=== PATIENT | male | born 1955 | race African-American/Black ===

== ENCOUNTER 2020-02-13 14:05 | Inpatient (IN) | payer OTHER ==
--- NOTE | 2020-02-13 14:22 | BHS.RME ---
Substance Use & Tx History - Substance Use History Alcohol Substance amount: 3- magalis drinks Frequency of use: Daily Substance route: Oral Date of Last Use: 02/12/20 Heroin Substance amount: 2-3 bags Frequency of use: Daily Substance route: Inhalation (ex: sniffing or snorting) Date of Last Use: 02/12/20 Cocaine-Crack Substance amount: $300-400 Frequency of use: Daily Substance route: Smoking Date of Last Use: 02/12/20 Nicotine Substance amount: 3-4 ciggs Frequency of use: Daily Substance route: Smoking Date of Last Use: 02/12/20 Physical/Psych/Mental Status - Behavior General Behavior: Increased activity (restlessness, agitation) Eye Contact: Normal - Cooperativeness Cooperativeness: Cooperative - Thinking Thought Processes: Tight, Logical, Goal Directed - Physical Health Problems Is patient presently having any pain?: No Does patient presently have any injuries (include location): No Does patient currently have a fever: No Is patient : No COWS - Scale Resting Pulse: 1= [place] 81-100 Sweatin= Chills/Flushing Restless Observation: 1= Difficult to Sit Still Pupil Size: 1= Pupils >than Normal Bone or Joint Aches: 1= Mild Discomfort Runny Nose/ Eye Tearin= Runny Nose/Eyes GI Upset > 30mins: 1= Stomach Cramp Tremor Observation: 1= Tremor [place], Not Seen Yawning Observation: 1= 1-2x During Session Anxiety or Irritability: 1=Feels Anxious/Irritable Goose Flesh Skin: 3=Piloerection COWS Score: 14
--- NOTE | 2020-02-13 15:01 | HP ---
COWS - Scale Resting Pulse: 1= [place] 81-100 Sweatin= Chills/Flushing Restless Observation: 1= Difficult to Sit Still Pupil Size: 1= Pupils >than Normal Bone or Joint Aches: 1= Mild Discomfort Runny Nose/ Eye Tearin= Runny Nose/Eyes GI Upset > 30mins: 1= Stomach Cramp Tremor Observation: 1= Tremor [place], Not Seen Yawning Observation: 1= 1-2x During Session Anxiety or Irritability: 1=Feels Anxious/Irritable Goose Flesh Skin: 3=Piloerection COWS Score: 14 CIWA Score - Admission Criteria OASAS Guidelines: Admission for Medically Managed Detox: Requires at least one of the followin. CIWA greater than 12 2. Seizures within the past 24 hours 3. Delirium tremens within the past 24 hours 4. Hallucinations within the past 24 hours 5. Acute intervention needed for co occurring medical disorder 6. Acute intervention needed for co occurring psychiatric disorder 7. Severe withdrawal that cannot be handled at a lower level of care (continued vomiting, continued diarrhea, abnormal vital signs) requiring intravenous medication and/or fluids 8. Admitting History and Physical - Admission Chief Complaint: ellie Borrero is a 64yo male presents to [facility] requesting for detox from alcohol and opiates. History of Present Illness: Mr. Joseph Borrero is a 64yo male presents to [facility] requesting for detox from alcohol and opiates. 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 Substance amount: 2-3 bags Frequency of use: Daily Substance route: Inhalation (ex: sniffing or snorting) Date of Last Use: 02/12/20 First dose:23yo oVERDOSED 15 TIMES, LAST OD WAS 2 DAYS AGO, NO NARCAN AT HOME Cocaine-Crack Substance amount: $300-400 Frequency of use: Daily Substance route: Smoking Date of Last Use: 02/12/20 First dose: 34yo Nicotine Substance amount: 3-4 ciggs Frequency of use: Daily Substance route: Smoking Date of Last Use: 02/12/20 First dose: 15yo He is not currently in a methadone or suboxone program History Source: Patient Limitations to Obtaining History: No Limitations - Past Medical History Psych: Yes: Anxiety, Depression Musculoskeletal: Yes: Chronic low back pain (Was given pain meds and asked to return for follow up but he never went for follow up) Additional Past Medical History: Hyperlipidemia - Past Surgical History Past Surgical History: Yes: None - Smoking History Smoking history: Current every day smoker Have you smoked in the past 12 months: Yes Aproximately how many cigarettes per day: 19 - Alcohol/Substance Use Hx Alcohol Use: Yes Number of Drinks Daily: 3 (takes magalis) History of Substance Use: reports: Cocaine, Heroin (Takes 2-3 bags of heroin daily) Date of Last Use: 02/12/20 (crack) Admission [facility] Exam Limitations: No Limitations - Ebola screening Have you traveled outside of the country in the last 21 days: No Have you been sick,other than usual withdrawal symptoms: No Do you have a fever: No - Review of Systems Constitutional: No Symptoms Reported, Unexplained wgt Loss (have lost 60 pounds over a year) EENT: reports: Blurred Vision Respiratory: reports: No Symptoms reported Cardiac: reports: No Symptoms Reported Musculoskeletal: reports: Back Pain (mild back pain, did not follow up as requested after taking pain meds) Integumentary: reports: No Symptoms Reported Endocrine: reports: Unexplained Weight Loss (60 punds over past year) Psychiatric: reports: Agitated, Anxious, Depressed Patient History - Smoking Cessation Smoking history: Current every day smoker Have you smoked in the past 12 months: Yes Aproximately how many cigarettes per day: 19 Hx Chewing Tobacco Use: No Initiated information on smoking cessation: Yes 'Breaking Loose' booklet given: 02/13/20 - Substances abused Alcohol Substance route: Oral Frequency: Daily Amount used: 3 Age of first use: 18 Date of last use: 02/12/20 (drinks magalis) Heroin Substance route: Smoking Frequency: Daily Amount used: 2-3 bags Age of first use: 22 Date of last use: 02/12/20 Crack Substance route: Smoking Frequency: Daily Amount used: $300-400 Age of first use: 34 Date of last use: 02/12/20 Admission Physical Exam [facility] - Physical General Appearance: Yes: Within Normal Limits, No Apparent Distress, Intoxicated, Cachetic, Thin HEENTM: Yes: Within Normal Limits, EOMI, Hearing grossly Normal, Normocephalic, Normal Voice, VINNIE (Pupil mildly constricted) Respiratory: Yes: Within Normal Limits, Chest Non-Tender, Lungs Clear, Normal Breath Sounds, No Respiratory Distress, No Accessory Muscle Use Neck: Yes: Within Normal Limits, No masses,lesions,Nodules, Trachea in good position Cardiology: Yes: Within Normal Limits, Regular Rhythm, Regular Rate, S1, S2 Abdominal: Yes: Within Normal Limits, Normal Bowel Sounds, Non Tender, Flat, Soft Genitourinary: Yes: Within Normal Limits Back: Yes: Within Normal Limits Musculoskeletal: Yes: Within Normal Limits Extremities: Yes: Within Normal Limits Neurological: Yes: Within Normal Limits, Alert (alert but mildly intoxicated) Integumentary: Yes: Within Normal Limits, Normal Color - Diagnostic (1) Alcohol dependence Current Visit: Yes Status: Chronic Qualifiers: Substance use status: uncomplicated Qualified Code(s): F10.20 - Alcohol dependence, uncomplicated (2) Heroin dependence Current Visit: Yes Status: Chronic (3) Nicotine dependence Current Visit: Yes Status: Chronic Qualifiers: Nicotine product type: cigarettes Substance use status: uncomplicated Qualified Code(s): F17.210 - Nicotine dependence, cigarettes, uncomplicated (4) Crack cocaine use Current Visit: Yes Status: Chronic Cleared for Admission [facility] - Detox or Rehab Detox Regimen/Protocol: Librium, Methadone Screened but not Admitted - Documentation of Visit Screened but not Admitted: No Urine Drug Screen - Results Urine drug screen results: RIK-Cocaine, FEN-Fentanyl, MOP-Opiates Inpatient Rehab Admission - Rehab Decision to Admit Inpatient rehab admission?: No
[2020-02-13] MEDS ORDERED: cloNIDine HCL 0.1 MG TABLET PO PRN (15:52)
[2020-02-13] MEDS ORDERED: ACETAMINOPHEN 325 MG TABLET (FP) PO PRN ×2 (15:52)
[2020-02-13] MEDS ORDERED: METHOCARBAMOL 500 MG TABLET PO PRN (15:52)
[2020-02-13] MEDS ORDERED: MAGNESIUM CITRATE 300 ML BOTTLE PO PRN (15:52)
[2020-02-13] MEDS ORDERED: BISMUTH SUBSALICYLATE 524 MG/30 ML UD PO PRN (15:52)
[2020-02-13] MEDS ORDERED: MAGNESIUM HYDROX 2400MG/30ML ORAL SUSPENSION 30 ML CUP PO PRN (15:52)
[2020-02-13] MEDS ORDERED: MAG HYDROX/AL HYDROX/SIMETH 30 ML UNIT-DOSE CUP PO PRN (15:52)
[2020-02-13] MEDS ORDERED: METHADONE HCL 10 MG TABLET (FOR DETOX USE ONLY) PO ONE (15:52)
[2020-02-13] MEDS ORDERED: IBUPROFEN 400 MG TABLET (FP) PO PRN (15:52)
[2020-02-13] MEDS ORDERED: chlordiazePOXIDE HCL 25 MG CAPSULE PO PRN (15:52)
[2020-02-13] MEDS ORDERED: NICOTINE POLACRILEX 2 MG GUM BUC PRN (15:52)
[2020-02-13] MEDS ORDERED: MENTHOL/PHENOL 1 EACH UD MM PRN (15:52)
[2020-02-13] MEDS ORDERED: ONDANSETRON *ODT* 4 MG TABLET SL PRN (15:52)
[2020-02-13] MEDS ORDERED: NICOTINE 21 MG/24 HOURS TOPICAL PATCH TD SCH (16:00)
[2020-02-13] MEDS ORDERED: hydrOXYzine PAMOATE 25 MG CAPSULE (FP) PO PRN (16:21)
[2020-02-13] MEDS ORDERED: diazePAM 5 MG TABLET PO PRN (16:22)
--- NOTE | 2020-02-13 16:25 | PN ---
Teaching Attending Note Name of Resident: Anselmo Gentile ATTENDING PHYSICIAN STATEMENT I saw and evaluated the patient. I reviewed the resident's note and discussed the case with the resident. I agree with the resident's findings and plan as documented. SUBJECTIVE: pt here requesting detox from heroin use , reports 2 - max 3 bags ./ day via inhalation , denies IV use . ETOH 2-3 drinks/ day , denies blackouts/ tremors or seizures . Cocaine - daily nicotine daily denies meds Others' Prescriptions Patient Name: Joseph Borrero Date: 1955 Address: [address] [place] [address] Sex: Male Rx Written Rx Dispensed Drug Quantity Days Supply Prescriber Name Payment Method Dispenser 09/25/2019 09/25/2019 buprenorphine-naloxone 8-2 mg sl film 6 2 Laks, Chip [employer] [place] [employer] [place] 09/19/2019 09/19/2019 buprenorphine-naloxone 4-1 mg sl film 6 2 Laks, [employer] 09/16/2019 09/16/2019 buprenorphine-naloxone 8-2 mg sl film 9 3 Laks, [employer] OBJECTIVE: drowsy , awakened by verbal stimuli . COWS = 2 ( anxiety and irritability ) denies other symptoms . BP 123/68 P 51 T 97.5 utox + martir , + MOP, + FEN trace pedal edema cachectic ASSESSMENT AND PLAN: OUD - currently drowsy, intoxicated , not in withdrawal , will admit for pt safety . Monitor VS and COWS score to start Methadone taper . AUD - valium detox Nicotine dependence - nrt w/ gum Cocaine use disorder- counseling
[2020-02-13 16:49] VITALS: BMI 19.0
[2020-02-13] MEDS ORDERED: chlordiazePOXIDE HCL 25 MG CAPSULE PO SCH (17:00)
[2020-02-13] MEDS ORDERED: hydrOXYzine PAMOATE 25 MG CAPSULE (FP) PO SCH (18:00)
[2020-02-13] MEDS: PRENATAL VITAMINS W/ FOLIC ACID TABLET (FP) PO SCH (18:40)
[2020-02-13] MEDS: MELATONIN 5 MG TABLETS PO SCH (23:07)
[2020-02-13] MEDS: THIAMINE HCL 100 MG TABLET (FP) PO SCH (23:07)
[2020-02-13] MEDS: diazePAM 5 MG TABLET PO SCH (23:07)
[2020-02-14] MEDS: diazePAM 5 MG TABLET PO SCH ×3 (08:01→23:05)
--- NOTE | 2020-02-14 09:38 | CONSULT ---
[facility] Psychiatric Consult - Data Date of interview: 02/14/20 Admission source: [facility] Identifying data: Mr Borrero is a 64 years old single Black male, father of 2 children, unemployed receiving SSI, domiciled in supportive living in an apartment in the [place] seeking detox treatment for alcohol, opioid and cocaine Substance Abuse History: Reports history of alcohol, heroin and cocaine. Refer to addiction counselor's summary for further information Medical History: Significant for dyslipidemia. Smokes 3-4 cigarettes daily Psychiatric History: This is patient's first admission to this facility. He is a poor and vague historian. He reports that he once years ago received outpatient treatment for depression. He said that he was prescribed medication but has no recollection of its name. Reports one previous psychiatric hospitalization for depression at a hospital in [place], [place]. He cannot tell much about it including treatment and referral. Denies previos suicidal ideations. At present, reports feeling mildly depressed and sleeping poorly Physical/Sexual Abuse/Trauma History: Denies history of abuse as a child or DV relationship as an adult Mental Status Exam - Mental Status Exam Alert and Oriented to: Time, Place, Person Cognitive Function: Fair Patient Appearance: Disheveled Mood: Depressed (mildly) Affect: Appropriate Patient Behavior: Cooperative Speech Pattern: Clear Voice Loudness: Normal Thought Process: Intact Hallucinations: Denies Suicidal Ideation: Denies Insight/Judgement: Poor Sleep: Poorly Appetite: Good Muscle strength/Tone: Normal Gait/Station: Normal Psychiatric Findings - Problem List ([place] 1, 2,3) (1) Depressive disorder Current Visit: Yes Status: Chronic (2) Substance induced mood disorder Current Visit: Yes Status: Acute (3) Substance-induced sleep disorder Current Visit: Yes Status: Acute (4) Uncomplicated alcohol dependence Current Visit: Yes Status: Acute (5) Uncomplicated opioid dependence Current Visit: Yes Status: Acute (6) Cocaine dependence Current Visit: Yes Status: Acute (7) Nicotine dependence Current Visit: Yes Status: Chronic Qualifiers: Nicotine product type: cigarettes Substance use status: uncomplicated Qualified Code(s): F17.210 - Nicotine dependence, cigarettes, uncomplicated (8) Dyslipidemia Current Visit: Yes Status: Chronic - Initial Treatment Plan Initial Treatment Plan: 1) Start Melatonin 5 mg po HS prn for insomnia. 2) Continue inpatient detoxification
[2020-02-14] MEDS ORDERED: METHADONE (DETOX) 20 MG, METHADONE (DETOX) 5 MG PO ONE (10:00)
[2020-02-14] MEDS: PRENATAL VITAMINS W/ FOLIC ACID TABLET (FP) PO SCH (10:29)
[2020-02-14 11:13] LABS: HEMATOCRIT 34.9 % (35.4-49); HEMOGLOBIN 11.8 GM/dL (11.7-16.9); MCH 32.1 pg (25.7-33.7); MCHC 33.8 g/dl (32.0-35.9); MEAN CELL VOLUME 94.7 fl (80-96); MEAN PLT VOLUME 8.1 fl (7.5-11.1); PLATELET COUNT 265 K/MM3 (134-434); RBC 3.69 M/mm3 (4.00-5.60); RDW 13.5 % (11.9-15.9); WHITE BLOOD COUNT 5.4 K/mm3 (4.0-10.0)
[2020-02-14 11:36] LABS: ALBUMIN 2.5 g/dl (3.4-5.0); BILIRUBIN,TOTAL 0.4 mg/dL (0.2-1); BLOOD UREA NITROGEN 13.3 mg/dL (7-18); CALCIUM 8.4 mg/dL (8.5-10.1); CREATININE 1.1 mg/dL (0.55-1.3); POTASSIUM 3.7 mmol/L (3.5-5.1); TOT PROT 5.8 g/dl (6.4-8.2)
--- NOTE | 2020-02-14 13:22 | EKG ---
Test Reason : Blood Pressure : / mmHG Vent. Rate : 059 BPM Atrial Rate : 059 BPM P-R Int : 150 ms QRS Dur : 086 ms QT Int : 478 ms P-R-T Axes : -03 063 064 degrees QTc Int : 473 ms SINUS BRADYCARDIA MINIMAL VOLTAGE CRITERIA FOR LVH, MAY BE NORMAL VARIANT NONSPECIFIC T WAVE ABNORMALITY NO PREVIOUS ECGS AVAILABLE Confirmed by ANALY CLOUD MD ([id number]) on 02/14/2020 1:22:11 PM Referred By: Confirmed By:ANALY CLOUD MD
--- NOTE | 2020-02-14 14:20 | PN ---
S CIWA - CIWA Score Nausea/Vomitin-No Nausea/No Vomiting Muscle Tremors: 4-Moderate,w/Arms Extend Anxiety: 4-Mod. Anxious/Guarded Agitation: 4-Moderately Restless Paroxysmal Sweats: 1-Minimal Palms Moist Orientation: 0-Oriented Tacttile Disturbances: 0-None Auditory Disturbances: 0-None Visual Disturbances: 0-None Headache: 0-None Present CIWA-Ar Total Score: 13 BHS COWS - Scale Resting Pulse: 0= [place] 80 or Below Sweatin= Chills/Flushing Restless Observation: 3= Extraneous Movement Pupil Size: 0= Normal to Room Light Bone or Joint Aches: 0= None Runny Nose/ Eye Tearin= None GI Upset > 30mins: 3= Vomiting/Diarrhea Tremor Observation of Outstretched Hands: 1= Tremor [place], Not Seen Yawning Observation: 0= None Anxiety or Irritability: 2=Irritable/Anxious Goose Flesh Skin: 0=Smooth Skin COWS Score: 10 S Progress Note (SOAP) Subjective: Pt is a 64 y/o male admitted to detox for opioid and alcohol withdrawal sx. Objective: 02/14/20 14:22 Vital Signs - 24 hr 02/13/20 02/13/20 02/13/20 16:44 17:32 21:07 Temperature 97.5 F L 96.9 F L 97.8 F Pulse Rate 56 L 53 L 57 L Respiratory 18 18 18 Rate Blood Pressure 123/68 136/74 119/64 O2 Sat by Pulse 97 Oximetry (%) 02/14/20 02/14/20 06:53 09:48 Temperature 97.4 F L 98.6 F Pulse Rate 51 L 61 Respiratory 18 16 Rate Blood Pressure 114/59 L 117/66 O2 Sat by Pulse 97 96 Oximetry (%) Laboratory Tests 02/14/20 02/14/20 02/14/20 07:05 07:05 07:05 WBC 5.4 RBC 3.69 L Hgb 11.8 Hct 34.9 L MCV 94.7 MCH 32.1 MCHC 33.8 RDW 13.5 Plt Count 265 MPV 8.1 Sodium 142 Potassium 3.7 Chloride 108 H Carbon Dioxide 28 Anion Gap 5 L BUN 13.3 Creatinine 1.1 Est GFR (CKD-EPI)AfAm 81.22 Est GFR (CKD-EPI)NonAf 70.07 Random Glucose 74 Calcium 8.4 L Total Bilirubin 0.4 AST 17 ALT 15 Alkaline Phosphatase 57 Total Protein 5.8 L Albumin 2.5 L Syphilis Serology Reactive A* RPR Titer 02/14/20 07:05 WBC RBC Hgb Hct MCV MCH MCHC RDW Plt Count MPV Sodium Potassium Chloride Carbon Dioxide Anion Gap BUN Creatinine Est GFR (CKD-EPI)AfAm Est GFR (CKD-EPI)NonAf Random Glucose Calcium Total Bilirubin AST ALT Alkaline Phosphatase Total Protein Albumin Syphilis Serology RPR Titer Reactive 1:32 H serology reactive; RPR 1:32(reports hx of "syphilis years ago with 3 or 4 treatments"). Not certain about sexual re-exposure episode) covid-19 result pending alert o x 3 nad oob ambulating with steady gait Assessment: 02/14/20 14:24 withdrawal sx Plan: cont detox increase po fluids maintain safety D/w pt will give a booster dose of Bicillin LA 2.4 mil units I.M x 1-Denied PCN allergy. pt agreeable to poc Pt to follow up with PCP after discharge.
[2020-02-14] MEDS ORDERED: PENICILLIN G BENZATHINE 2,400,000 UNIT/4 ML PFS IM ONE (15:13)
[2020-02-14] MEDS ORDERED: TUBERCULIN PPD 5 TU/0.1ML VIAL ID ONE ×2 (16:34→18:11)
[2020-02-14] MEDS: THIAMINE HCL 100 MG TABLET (FP) PO SCH (23:05)
[2020-02-14] MEDS: MELATONIN 5 MG TABLETS PO SCH (23:05)
[2020-02-15] MEDS ORDERED: chlordiazePOXIDE HCL 25 MG CAPSULE PO SCH (05:00)
[2020-02-15] MEDS: diazePAM 5 MG TABLET PO SCH ×2 (06:20→17:47)
[2020-02-15] MEDS ORDERED: METHADONE HCL 10 MG TABLET (FOR DETOX USE ONLY) PO ONE (10:00)
--- NOTE | 2020-02-15 11:00 | PN ---
[facility] CIWA - CIWA Score Nausea/Vomitin-No Nausea/No Vomiting Muscle Tremors: None Anxiety: 2 Agitation: 0-Normal Activity Paroxysmal Sweats: 2 Orientation: 0-Oriented Tacttile Disturbances: 0-None Auditory Disturbances: 0-None Visual Disturbances: 0-None Headache: 0-None Present CIWA-Ar Total Score: 4 S COWS - Scale Resting Pulse: 0= [place] 80 or Below Sweatin= No chills or Flushing Restless Observation: 0= Sits Still Pupil Size: 0= Normal to Room Light Bone or Joint Aches: 2= Severe Diffuse Aches Runny Nose/ Eye Tearin= None GI Upset > 30mins: 0= None Tremor Observation of Outstretched Hands: 0= None Yawning Observation: 0= None Anxiety or Irritability: 2=Irritable/Anxious Goose Flesh Skin: 0=Smooth Skin COWS Score: 4 [facility] Progress Note (SOAP) Subjective: c/o mild withdrawal symptoms. Objective: 02/15/20 11:00 Vital Signs 02/15/20 02/15/20 06:56 10:09 Temperature 98.2 F 98 F Pulse Rate 56 L 69 Respiratory 18 16 Rate Blood Pressure 124/78 136/99 O2 Sat by Pulse 96 98 Oximetry (%) Laboratory Last Values WBC 5.4 K/mm3 (4.0-10.0) 02/14/20 07:05 RBC 3.69 M/mm3 (4.00-5.60) L 02/14/20 07:05 Hgb 11.8 GM/dL (11.7-16.9) 02/14/20 07:05 Hct 34.9 % (35.4-49) L 02/14/20 07:05 MCV 94.7 fl (80-96) 02/14/20 07:05 MCH 32.1 pg (25.7-33.7) 02/14/20 07:05 MCHC 33.8 g/dl (32.0-35.9) 02/14/20 07:05 RDW 13.5 % (11.9-15.9) 02/14/20 07:05 Plt Count 265 K/MM3 (134-434) 02/14/20 07:05 MPV 8.1 fl (7.5-11.1) 02/14/20 07:05 Sodium 142 mmol/L (136-145) 02/14/20 07:05 Potassium 3.7 mmol/L (3.5-5.1) 02/14/20 07:05 Chloride 108 mmol/L (98-107) H 02/14/20 07:05 Carbon Dioxide 28 mmol/L (21-32) 02/14/20 07:05 Anion Gap 5 MMOL/L (8-16) L 02/14/20 07:05 BUN 13.3 mg/dL (7-18) 02/14/20 07:05 Creatinine 1.1 mg/dL (0.55-1.3) 02/14/20 07:05 Est GFR (CKD-EPI)AfAm 81.22 02/14/20 07:05 Est GFR (CKD-EPI)NonAf 70.07 02/14/20 07:05 Random Glucose 74 mg/dL (74-106) 02/14/20 07:05 Calcium 8.4 mg/dL (8.5-10.1) L 02/14/20 07:05 Total Bilirubin 0.4 mg/dL (0.2-1) 02/14/20 07:05 AST 17 U/L (15-37) 02/14/20 07:05 ALT 15 U/L (13-61) 02/14/20 07:05 Alkaline Phosphatase 57 U/L (45-117) 02/14/20 07:05 Total Protein 5.8 g/dl (6.4-8.2) L 02/14/20 07:05 Albumin 2.5 g/dl (3.4-5.0) L 02/14/20 07:05 Syphilis Serology Reactive (NONREACTIVE) A* 02/14/20 07:05 RPR Titer Reactive 1:32 (NONREACTIVE) H 02/14/20 07:05 Labs noted. 02/15/20 11:04 Assessment: 02/15/20 11:04 AOx 3, in no acute respiratory distress. Full ROM, ambulating in the unit. Mild Withdrawal symptoms. Plan: continue detox.
[2020-02-15] MEDS: PRENATAL VITAMINS W/ FOLIC ACID TABLET (FP) PO SCH (11:03)
[2020-02-15] MEDS: MELATONIN 5 MG TABLETS PO SCH (22:53)
[2020-02-15] MEDS: THIAMINE HCL 100 MG TABLET (FP) PO SCH (22:53)
[2020-02-16] MEDS ORDERED: chlordiazePOXIDE HCL 10 MG CAPSULE PO PRN
[2020-02-16] MEDS ORDERED: chlordiazePOXIDE HCL 10 MG CAPSULE PO SCH (05:00)
[2020-02-16] MEDS ORDERED: diazePAM 5 MG TABLET PO ONE (06:00)
[2020-02-16 07:51] VITALS: BP 108/65; PULSE 68; TEMP 97.4
[2020-02-16] MEDS ORDERED: METHADONE (DETOX) 10 MG, METHADONE (DETOX) 5 MG PO ONE (10:00)
--- NOTE | 2020-02-16 14:27 | DS ---
[facility] Detox Discharge Summary Admission Date: 02/13/20 Discharge Date: 02/16/20 - History Present History: Alcohol Dependence, Opioid Dependence Additional Comments: 64 years old male admitted on 02/13/20 for alcohol and opiate withdrawal sx management treated with valium detox regiment due to last dose of opiate on 02/12/20 "overdose" revised encourage to berry picker narcan from pharmacy upon discharge from detox seen by psychiatrist jeffrey for insomnia mr melvin prefers not to go to medication assisted treatment program for opiate recovery perhaps community support NA last dose of opiate upon admission 02/12/20 mr melvin has completed the valium regimen and is tolerated well alert oriented x 3 speech clearly coherently ambulating with steady gaits respiratory clear lung sounds bilaterally on auscultation abdomen soft flat no rebound tenderness extremities full range of motion Pertinent Past History: time for discharge 35 minutes - Physical Exam Results Vital Signs: Vital Signs Temperature 97.4 F L 02/16/20 07:00 Pulse Rate 68 02/16/20 07:00 Respiratory Rate 18 02/16/20 07:00 Blood Pressure 108/65 02/16/20 07:00 O2 Sat by Pulse Oximetry (%) 96 02/16/20 07:00 Pertinent Admission Physical Exam Findings: alcohol withdrawal Laboratory Tests 02/13/20 02/14/20 02/14/20 17:50 07:05 07:05 WBC 5.4 RBC 3.69 L Hgb 11.8 Hct 34.9 L MCV 94.7 MCH 32.1 MCHC 33.8 RDW 13.5 Plt Count 265 MPV 8.1 Sodium Potassium Chloride Carbon Dioxide Anion Gap BUN Creatinine Est GFR (CKD-EPI)AfAm Est GFR (CKD-EPI)NonAf Random Glucose Calcium Total Bilirubin AST ALT Alkaline Phosphatase Total Protein Albumin Syphilis Serology Reactive A* RPR Titer COVID-19 (MICHELLE) Not detected 02/14/20 02/14/20 07:05 07:05 WBC RBC Hgb Hct MCV MCH MCHC RDW Plt Count MPV Sodium 142 Potassium 3.7 Chloride 108 H Carbon Dioxide 28 Anion Gap 5 L BUN 13.3 Creatinine 1.1 Est GFR (CKD-EPI)AfAm 81.22 Est GFR (CKD-EPI)NonAf 70.07 Random Glucose 74 Calcium 8.4 L Total Bilirubin 0.4 AST 17 ALT 15 Alkaline Phosphatase 57 Total Protein 5.8 L Albumin 2.5 L Syphilis Serology RPR Titer Reactive 1:32 H COVID-19 (MICHELLE) syphilis reactive serology received penicillin G IM on 02/14/20 mr melvin informed to have penicillin g IM second shot a week later as well as third penicillin shot week later - Treatment Hospital Course: Detox Protocol Followed, Detoxed Safely, Responded well, Discharged Condition Good, Rehab Referral Accepted Patient has Accepted a Rehab Referral to: community support AA/NA - Medication Discharge Medications: Ambulatory Orders Naloxone HCl [Narcan] 4 mg NS ASDIR PRN #1 spray 02/16/20 - Diagnosis (1) Substance induced mood disorder Status: Suspected (2) Syphilis contact Status: Acute (3) Uncomplicated alcohol dependence Status: Acute (4) Uncomplicated opioid dependence Status: Acute (5) Nicotine dependence Status: Acute Qualifiers: Nicotine product type: cigarettes Substance use status: in withdrawal Qualified Code(s): F17.213 - Nicotine dependence, cigarettes, with withdrawal - AMA Did Patient Leave Against Medical Advice: No CIWA Score - CIWA Score Nausea/Vomitin-No Nausea/No Vomiting Muscle Tremors: None Anxiety: 1-Mildly Anxious Agitation: 0-Normal Activity Paroxysmal Sweats: 1-Minimal Palms Moist Orientation: 0-Oriented Tacttile Disturbances: 0-None Auditory Disturbances: 0-None Visual Disturbances: 0-None Headache: 0-None Present CIWA-Ar Total Score: 2 COWS (PN) - Opiate Withdrawal Resting Pulse: 0= [place] 80 or Below Sweatin= No chills or Flushing Restless Observation: 0= Sits Still Pupil Size: 1= Pupils >than Normal Bone or Joint Aches: 0= None Runny Nose/ Eye Tearin= None GI Upset > 30mins: 0= None Tremor Observation of Outstretched Hands: 1= Tremor [place], Not Seen Yawning Observation: 0= None Anxiety or Irritability: 1=Feels Anxious/Irritable Goose Flesh Skin: 0=Smooth Skin COWS Score: 3
[2020-02-17] MEDS ORDERED: chlordiazePOXIDE HCL 10 MG CAPSULE PO SCH (05:00)
[2020-02-17] MEDS ORDERED: METHADONE HCL 10 MG TABLET (FOR DETOX USE ONLY) PO ONE (10:00)
[2020-02-18] MEDS ORDERED: chlordiazePOXIDE HCL 10 MG CAPSULE PO ONE (05:00)
[2020-02-18] MEDS ORDERED: METHADONE HCL 5 MG TABLET (FOR DETOX USE ONLY) PO ONE (06:00)
== END 2020-02-16 08:58 | disposition home or self-care (01) | DRG 897 ==
LOC: YASAS 14:05 → Y5N DETOX 17:08
PROVIDERS: ADMIT Allergy & Immunology; ATTEND Allergy & Immunology
PROC: HZ2ZZZZ Detoxification Services for Substance Abuse Treatment (ICD-10-PCS; principal; 2020-02-13)
DX: F10.230 Alcohol dependence with withdrawal, uncomplicated (principal); F14.20 Cocaine dependence, uncomplicated; F19.282 Other psychoactive substance dependence with psychoactive substance-induced sleep disorder; Z68.1 Body mass index [BMI] 19.9 or less, adult; F11.23 Opioid dependence with withdrawal; F17.213 Nicotine dependence, cigarettes, with withdrawal; F19.24 Other psychoactive substance dependence with psychoactive substance-induced mood disorder; F32.9 Major depressive disorder, single episode, unspecified; G47.00 Insomnia, unspecified; E78.5 Hyperlipidemia, unspecified; M54.5 Low back pain; G89.29 Other chronic pain; R63.4 Abnormal weight loss; Z20.2 Contact with and (suspected) exposure to infections with a predominantly sexual mode of transmission; Z56.0 Unemployment, unspecified
CPT/HCPCS: 36415; 80053; 85027; 86593; 86780; 93005; 93010; U0003